=== PATIENT | male | born 1935 | race Caucasian/White ===

== ENCOUNTER 2016-11-13 08:43 | Outpatient (CLI) | payer MEDICARE, OTHER ==
[2015-07-23 09:09] VITALS: BP 116/52
--- NOTE | 2016-11-13 16:01 | Diagnostic Imaging Report ---
[facility] [address] [facility] [address] [address] Report Submission Date: Nov 13, 2016 9:25:03 AM GROUP CAPTAIN Patient Study Name: ISAEL ARAGON Date: Nov 13, 2016 8:54:37 AM GROUP CAPTAIN Modality Type: CT\SR Gender: M Description: CT L-SPINE W/O CONTRAS : 35 Institution: [facility] Physician SHAHEEN CARNES ([place]) CT lumbar spine CLINICAL HISTORY: L4 compression fracture. TECHNIQUE: CT of the lumbar spine is performed in contiguous axial slices with sagittal and coronal reconstructions. FINDINGS: There is a compression fracture of L4 with approximately 80% loss of vertebral height in the mid body. There is mild compression of the inferior endplate of L1 with 20% loss of vertebral height. Schmorl's node is seen in the superior endplate of T12. The alignment of the vertebrae is anatomic. There is retropulsion of the posterosuperior aspect of L4 into the a spinal canal by 4 mm. Residual AP diameter of the thecal sac is 8.5 mm. Degenerative facet changes are seen at L3-4, L4-5 and L5-S1. Hypertrophic facets and hypertrophy of the ligaments at L4-5 narrow the canal. Resulting AP diameter of thecal sac is approximately 10 mm with coronal dimension of 9 mm. Aortic stent graft is incidentally noted with a residual aortic diameter of 3 cm. IMPRESSION: Compression fracture of L4 with retropulsion of the posterior aspect of the vertebral body into the canal and resulting spinal stenosis. Spinal stenosis at L4-5 related to degenerative facet changes and hypertrophic ligaments. Mild compression of the inferior endplate of L1 that appears old. Aortic stent graft. Electronically signed on Nov 13, 2016 9:25:03 AM GROUP CAPTAIN by: Ron RUIZ
== END 2016-11-13 08:44 ==
LOC: RAD 08:43
PROVIDERS: ATTEND Family Medicine
DX: S32.040A Wedge compression fracture of fourth lumbar vertebra, initial encounter for closed fracture (principal); X58.XXXA Exposure to other specified factors, initial encounter; Y93.9 Activity, unspecified; Y92.9 Unspecified place or not applicable; Y99.9 Unspecified external cause status
CPT/HCPCS: 72131

== ENCOUNTER 2016-11-17 08:37 | Outpatient (CLI) | payer MEDICARE, OTHER ==
[2015-07-23 09:09] VITALS: BP 116/52
[~2016-11-17 08:37] MED LIST: 0.9 % SODIUM CHLORIDE 100 ML IV.SOLN IV ONE; 0.9 % SODIUM CHLORIDE 250 ML IV.SOLN IV ONE; CLINDAMYCIN PHOSPHATE 300 MG/2 ML VIAL ONE; LIDOCAINE HCL/PF 2% 100 MG/5 ML VIAL IJ ONE; Lidocaine 1% 5ml(IM or SUTURE)(PAIN CLINIC) IV ONE; Lidocaine 1% 5ml(IM or SUTURE)(PAIN CLINIC) ONE; NORMAL SALINE 500 ML IV.SOLN IV ONE; PROPOFOL 500 MG/50 ML VIAL IV ONE; SALINE FLUSH 10 ML DISP.SYRIN IVF ONE; VANCOMYCIN HCL 1 GM VIAL IV ONE; ePHEDrine SULFATE 50 MG/1 ML IVP ONE
[2016-11-17] MEDS ORDERED: GENTAMICIN SULFATE IV SCH (11:00)
[2016-11-17] MEDS ORDERED: VANCOMYCIN HCL 1 GM in 0.9 % SODIUM CHLORIDE 250 ML IV SCH (11:00)
[2016-11-17] MEDS ORDERED: CLINDAMYCIN PHOSPHATE 600 MG in 0.9 % SODIUM CHLORIDE 100 ML IV SCH (11:00)
[2016-11-17 12:50] LABS: eGFR (African) > 60; eGFR (Non-African) > 60
--- NOTE | 2016-11-17 14:57 | HISTORY AND PHYSICAL REPORT ---
REFERRING PHYSICIAN: Dr. Valeriy Torre Dear Valeriy: HISTORY OF PRESENT ILLNESS: I had the opportunity of seeing Hai Alejandre today as an outpatient at [facility]. Aaron is a delightful 81-year-old white male who resides currently at a skilled facility and has suffered a number of falls over the last couple of months. He has fallen when attempting to transfer from bed to chair; however, recently began with severe low back pain. Recent CAT scan reveals a compression fracture of the L4 vertebral body. He complains of axial back pain. His ability to move has become markedly limited. He denies radicular pain. He denies any symptoms of increasing bowel or bladder loss or loss of tone in the lower extremities. He says the back pain is new, significant, and severe. His caregiver says that he has been much more immobile. PAST MEDICAL HISTORY: 1. History of hypertension. 2. Alzheimer's disease. 3. High cholesterol. 4. Depression. 5. Parkinson's disease. 6. GERD. 7. Dementia. 8. Anxiety. 9. Insulin-dependent diabetes. 10. Urinary incontinence. PAST SURGICAL HISTORY: Abdominal aortic aneurysm (AAA) repair. CURRENT DAILY MEDICATIONS: 1. Aspirin 81 mg daily. 2. Lisinopril 5 mg daily. 3. Zoloft 50 mg daily. 4. Metformin 500 mg daily. 5. Cogentin 0.5 mg b.i.d. 6. Depakote ER 500 mg b.i.d. 7. Pravastatin 20 mg at bedtime. 8. Tylenol 650 mg every 6 hours p.r.n. pain. 9. Milk of magnesia 30 mL p.r.n. 10. Loxapine 5 mg daily. 11. Carbidopa/levodopa 25/100 mg 1 tablet 5 times daily. 12. Omeprazole 40 mg daily. 13. Metamucil 1.7 grams daily. 14. Ketoconazole 200 mg topical b.i.d. p.r.n. until healed. 15. Lantus 20 units subcutaneous at bedtime. ALLERGIES: He has no known drug allergies. SOCIAL HISTORY: He lives at a long-term care facility. His son, Dennis, is his POA. FAMILY HISTORY: No known family history. REVIEW OF SYSTEMS: He has no recent complaints other than his back pain. His pain is worse with any movement or transitioning. Nothing improves his pain. PHYSICAL EXAMINATION: General: This is a well-nourished, well-developed white male in no apparent distress. Vital Signs: BP: 133/80, P: 72, R: 20, oxygen saturation 97% on room air. HEENT: Pupils are equal, round, and reactive to light and accommodation. Extraocular movements intact. No facial droop. Neck: There is full range of motion of the cervical spine. No evidence of adenopathy. Thyroid is nontender, no enlarged. Carotids are without bruits. Chest: Clear to auscultation bilaterally. Normal. Chest excursion. Heart: Regular rate and rhythm without murmur. Abdomen: Benign. Normoactive bowel sounds. Motor/sensory: Intact in the upper and lower extremities. Moves all extremities freely. Back: He is markedly tender over the L4 vertebral body with palpation. Extremities: Strength is 5/5 and equal in his lower extremities. Negative straight leg raise bilaterally. Reflexes are 2+ and equal at patellar tendon and Achilles tendon. DIAGNOSTIC STUDIES: CT reveals acute near planus compression fracture with minimal retropulsion. ASSESSMENT/PLAN: I think this gentleman may benefit from a vertebroplasty/kyphoplasty. I have talked to his son who is the power of prosecuting attorney, Dennis Alejandre, and he expresses willingness to proceed in treatment. Dr. Torre, thank you very much for allowing me to take part in the care of this nice gentleman. I appreciate the opportunity to take part in the care of your patients. cc: Dr. Valeriy RUIZ
--- NOTE | 2016-11-18 14:37 | VERTEBRAL KYPHOPLASTY ---
REFERRING PHYSICIAN: Dr. Valeriy Torre PREOPERATIVE DIAGNOSIS: L4 compression fracture. POST OPERATIVE DIAGNOSIS: L4 compression fracture. ANESTHESIA: Monitored anesthesia care. ANESTHESIOLOGIST: Azul Thakkar CRNA PROCEDURE: L4 vertebroplasty. DESCRIPTION OF PROCEDURE: Consent was obtained after risks were fully explained, including bleeding, infection, nerve damage, and worsening of symptoms with no improvement. The patient was positioned prone on the fluoroscopic procedure table. Under monitored anesthesia care, sterile prep and drape were applied and the L4 vertebral compression fracture was noted fluoroscopically. A skin wheal was raised over the left and right paraspinal margins over the vertebral pedicles. At this point, small incisions were performed. Number 13-gauge introducer needles were advanced to the left and right L4 pedicle on AP and lateral fluoroscopic imaging. With the needles in place, the needles were then inserted through the pedicles on the left and right side of the L4 process into the anterior one-third of the vertebral body and found to be in an adequate location. Subsequent filling was then performed with StumbleUpon VertaPlex cement and a total of 3 mL was utilized over 2 needles. The stylets were replaced and the additional 0.5 mL of cement was then injected in each side. Cannulae were rotated 360 degrees and removed from the spine. Postoperative images revealed adequate filling of the planus in the one-third area of the vertebral fracture. ASSESSMENT: L4 vertebroplasty, status post acute compression fracture. PLAN: We will plan for bracing for the next 2 weeks for comfort. Begin physical therapy in [address] Torre, thank you very much for allowing me to take part in the care of this nice gentleman. I appreciate the opportunity to take part in the care of your patients. cc: Dr. Valeriy RUIZ
== END 2016-11-17 08:40 ==
LOC: OUT 08:37
PROVIDERS: ATTEND Anesthesiology Pain Medicine
DX: M48.56XA Collapsed vertebra, not elsewhere classified, lumbar region, initial encounter for fracture (principal)
CPT/HCPCS: 36415; 80053; J2001; J2704; J3370; J3490; J7050; J7060; 22511; 99214; C1713; G0463; S1016

== ENCOUNTER 2016-12-01 10:33 | Outpatient (CLI) | payer MEDICARE, OTHER ==
[2015-07-23 09:09] VITALS: BP 116/52
--- NOTE | 2016-12-01 13:05 | PAIN CLINIC PROGRESS NOTES ---
REFERRING PHYSICIAN: Dr. Valeriy Torre Dear Valeriy: REASON FOR VISIT: I followed up with Hai Alejandre today as an outpatient in clinic. I did an L4 vertebroplasty on him for a severe L4 thoracic compression fracture. He is much better. His nurse/caregiver says he has not needed any tramadol. He takes a couple of Tylenol and he has been able to transfer without pain, although he is weak and it does take a couple of people to help him transfer. PLAN: At this point, I have told him that he can use the brace simply for comfort and we will initiate physical therapy. We will follow up with him if his symptoms should worsen or reoccur. Dr. Torre, thank you again for allowing me to take part in the care of this nice gentleman. He has had a very good response to a vertebroplasty. cc: Dr. Valeriy RUIZ
== END 2016-12-01 10:34 ==
LOC: OUT 10:33
PROVIDERS: ATTEND Anesthesiology Pain Medicine
DX: M48.56XD Collapsed vertebra, not elsewhere classified, lumbar region, subsequent encounter for fracture with routine healing (principal)
CPT/HCPCS: 99214; G0463

== ENCOUNTER 2017-03-04 08:53 | Outpatient (CLI) | payer MEDICARE, OTHER ==
[2015-07-23 09:09] VITALS: BP 116/52
--- NOTE | 2017-03-04 20:55 | Diagnostic Imaging Report ---
[place]) [facility] [id number] [facility] [address] [place], [place]. [address] Report Submission Date: Mar 04, 2017 11:23:16 AM CDT Patient Study Name: ISAEL ARAGON Date: Mar 04, 2017 9:07:48 AM CDT Modality Type: CT\SR Gender: M Description: CT L-SPINE W/O CONTRAS : 35 Institution: [facility] Physician: SHAHEEN CARNES ([place]) CT of the lumbar spine Clinical history: Compression fractures. Technique: CT of the lumbar spine is performed in contiguous axial slices with sagittal and coronal reconstructions. Comparison is made to a prior study dated 11/13/2016. Findings: There is a compression fracture of L4 as was seen on the prior examination with mild retropulsion of the posterior-superior aspect of the vertebral body into the canal resulting in spinal stenosis. There has been interval vertebroplasty at the L4 level with cement in the anterior aspect of vertebral body and in the L4-5 disc space. Compression fracture of the inferior endplate of L1 is again seen and appears not significantly changed. There is approximately 20% loss of vertebral height at L1. Anterior and lateral osteophytes are present throughout the lumbar vertebrae. The aortic stent graft is again demonstrated. There is no new fracture identified. Degenerative facet changes are seen in the mid and lower lumbar vertebrae. The sacroiliac joints are symmetric. Impression: 1. Post vertebroplasty changes at L4 when compared to the prior study with cement in the anterior aspect of the vertebral body on the left and cement in the L4-5 disc space on the right. 2. Spinal stenosis at L3-4 as was seen on the prior study. 3. Old compression fracture of the inferior endplate of L1 that appears stable. 4. No acute fracture. Electronically signed on Mar 04, 2017 11:23:16 AM CDT by: Ron RUIZ
== END 2017-03-04 08:54 ==
LOC: RAD 08:53
PROVIDERS: ATTEND Family Medicine
DX: M48.56XA Collapsed vertebra, not elsewhere classified, lumbar region, initial encounter for fracture (principal)
CPT/HCPCS: 72131

== ENCOUNTER 2018-09-29 18:15 | Emergency (ER) | payer MEDICARE, OTHER ==
--- NOTE | 2018-09-30 06:31 | Diagnostic Imaging Report ---
ERNA IQBAL [facility] [address] [facility] [address] [place] [address]. [id number] Report Submission Date: Sep 29, 2018 7:50:34 PM [employer] Patient Study Name: ISAEL SANTANA Date: Sep 29, 2018 7:01:13 PM [employer] Modality Type: DX Gender: U Description: CHEST : 35 Institution: [facility] Physician: ERNA IQBAL Chest, AP and lateral. HISTORY Choking FINDINGS No infiltrate, effusion or pneumothorax is present. Heart size, mediastinum and pulmonary vascularity are normal. IMPRESSION No active pulmonary disease. Electronically signed on Sep 29, 2018 7:50:34 PM [employer] by: Momo RUIZ
[2018-09-30 07:19] VITALS: BP 179/102
== END 2018-09-29 20:00 ==
LOC: ED 18:15
DX: T17.228A Food in pharynx causing other injury, initial encounter (principal); X58.XXXA Exposure to other specified factors, initial encounter; Y93.89 Activity, other specified; Y92.129 Unspecified place in nursing home as the place of occurrence of the external cause
CPT/HCPCS: 71046; 99283

== ENCOUNTER 2019-06-14 20:45 | Outpatient (CLI) | payer MEDICARE, OTHER ==
[2018-09-30 07:19] VITALS: BP 179/102
[2019-06-15 06:39] LABS: APPEARANCE,URINE CLEAR (CLEAR); BASOPHILS % 0.9 % (0.0-1.5); COLOR,URINE YELLOW (YELLOW); NEUTROPHILS # 16.9 # k/uL (1.4-7.7); OCCULT BLOOD,URINE NEGATIVE (NEGATIVE)
[2019-06-15 06:40] LABS: eGFR (Non-African) > 60
== END 2019-06-14 20:47 ==
LOC: LAB 20:45
PROVIDERS: ATTEND Family Medicine
DX: N39.0 Urinary tract infection, site not specified (principal)
CPT/HCPCS: 80053; 81002; 85025; 87086

== ENCOUNTER 2019-08-16 09:29 | Outpatient (CLI) | payer MEDICARE, OTHER ==
[2018-09-30 07:19] VITALS: BP 179/102
== END 2019-08-16 09:34 ==
LOC: LAB 09:29
PROVIDERS: ATTEND Family Medicine
DX: E11.9 Type 2 diabetes mellitus without complications (principal)
CPT/HCPCS: 36415; 83036

== ENCOUNTER 2019-09-13 16:50 | Outpatient (CLI) | payer MEDICARE, OTHER ==
[2018-09-30 07:19] VITALS: BP 179/102
== END 2019-09-13 16:55 ==
LOC: LABRHC 16:50
PROVIDERS: ATTEND Family Medicine
DX: B35.9 Dermatophytosis, unspecified (principal); N39.0 Urinary tract infection, site not specified; F32.9 Major depressive disorder, single episode, unspecified; M48.50XA Collapsed vertebra, not elsewhere classified, site unspecified, initial encounter for fracture; R45.1 Restlessness and agitation; I25.10 Atherosclerotic heart disease of native coronary artery without angina pectoris; K21.9 Gastro-esophageal reflux disease without esophagitis; E88.1 Lipodystrophy, not elsewhere classified; F03.90 Unspecified dementia, unspecified severity, without behavioral disturbance, psychotic disturbance, mood disturbance, and anxiety; J30.9 Allergic rhinitis, unspecified; B35.1 Tinea unguium; I10 Essential (primary) hypertension; G20 Parkinson's disease; F32.89 Other specified depressive episodes; J20.9 Acute bronchitis, unspecified
CPT/HCPCS: 80164